=== PATIENT | female | born 1930 | race Two or more races ===

== ENCOUNTER 2017-03-01 20:31 | Emergency (ER) | payer OTHER ==
--- NOTE | ~2017-03-01 | CR72 ---
[facility] A Service of [facility] RADIOLOGY TEXT RESULTS PATIENT: AFRICA WONG LOCATION: [facility] : 34 UNIT #: [id number] AGE: [address]: Ant Nair MD SEX: F ORDER DR: [id number] [facility] [address] [place], [place] [address] [id number] E MR#: [id number] Acc #: [id number] NAME: AFRICA WONG : 1930 SEX: F STUDY DATE/TIME: 03/01/2017 22:00 UNIT: [facility] ROOM: STUDY DESCRIPTION: CR Chest Single View Portable Attending Physician: Ant Nair M.D. Ordering Physician: Ant Nair M.D. Primary Care Physician: No Primary Care Physician MEDICAL IMAGING REPORT This report is preliminary unless electronic signature is present EXAM Portable chest. HISTORY Weakness and dizzy and shortness of air for 2 days. FINDINGS The cardiac size and pulmonary vascularity are within normal limits allowing for shallow inspiration. Moderate right upper thoracic curve. Mild bibasilar linear atelectasis or scarring, greater in the right base. IMPRESSION 1. No acute findings. 2. Mild bibasilar fibrosis or linear atelectasis, greater in the right base. Dictated by... Crow Red M.D. THIS IS AN ELECTRONICALLY VERIFIED REPORT Crow Red M.D. at 03/02/2017 3:19 PM MARQUITA/katlyn TD: 03/01/2017 23:30 JOB #: [id number] MEDICAL IMAGING REPORT Page 1 of 1 COPY
--- NOTE | ~2017-03-01 | EKG ---
PATIENT: AFRICA WONG UNIT #: [id number] Ventricular Rate: 70 BPM Atrial Rate: 70 BPM P-R Interval: 136 ms QRS Duration: 74 ms Q-T Interval: 462 ms QTC Calculation(Bezet): 498 ms P [place]: 68 degrees Calculated R [place]: 21 degrees Calculated T [place]: 63 degrees Diagnosis Line: Normal sinus rhythm Diagnosis Line: Prolonged QT Diagnosis Line: Abnormal ECG Diagnosis Line: When compared with ECG of 01-MAR-2017 22:16, Diagnosis Line: (unconfirmed) Diagnosis Line: Previous ECG has undetermined rhythm, needs review Diagnosis Line: Confirmed by SAMI SHAH MD ([id number]) on 03/02/2017 Diagnosis Line: 7:40:41 PM INTERPRETING MD: PABLO BOWDEN
--- NOTE | ~2017-03-01 | CT71 ---
[facility] A Service of [facility] RADIOLOGY TEXT RESULTS PATIENT: AFRICA WONG LOCATION: [facility] : 32 UNIT #: [id number] AGE: [address]: Ant Nair MD SEX: F ORDER DR: [id number] [facility] [address] [place], [place] [address] [id number] E MR#: [id number] Acc #: [id number] NAME: AFRICA WONG : 1930 SEX: F STUDY DATE/TIME: 03/01/2017 22:57 UNIT: SAV ROOM: STUDY DESCRIPTION: CT Head Wo Contrast Attending Physician: Ant Nair M.D. Ordering Physician: Ant Nair M.D. Primary Care Physician: Primary Care Physician No MEDICAL IMAGING REPORT This report is preliminary unless electronic signature is present EXAM Noncontrast CT head DATE: 03/01/2017 HISTORY Weakness, dizziness and unable to stand for 2 days. Previous history of seizures and hypertension. COMPARISON None. TECHNIQUE This CT exam was performed with one or more of the following radiation dose reduction techniques: automatic exposure control, adjustment of mA and/or kV according to patient size, and iterative reconstruction. FINDINGS There is advanced generalized parenchymal atrophy. The ventricles appear generally enlarged, which may be the result of parenchymal volume loss, although underlying hydrocephalus could be considered. Extensive hypodensities in the deep white matter of the brain are nonspecific, but are favored to represent changes of chronic microvascular disease, somewhat greatest in the left frontal lobe, and there are chronic-appearing lacunar infarcts within the bilateral thalami and within the left caudate head. No definite acute or evolving infarct. No intracranial hemorrhage, mass lesion, mass effect or midline shift. Complete right frontal sinus opacification suggesting changes of chronic sinusitis with adjacent sinus wall thickening and sclerosis. Mastoid air cells are clear. No acute displaced calvarial fractures identified. IMPRESSION [facility] A Service of [facility] RADIOLOGY TEXT RESULTS PATIENT: AFRICA WONG LOCATION: [facility] : 34 UNIT #: [id number] AGE: [address]: Ant Nair MD SEX: F ORDER DR: 1. Extensive deep white matter hypodensities thought to represent changes of chronic microvascular disease with chronic-appearing lacunar infarct in the left caudate head and bilateral thalami. No definite acute infarct. If the patient's symptoms persist, or remain unexplained consider correlation MRI brain. 2. Moderately advanced generalized atrophy. 3. Generalized ventriculomegaly. This could be related to parenchymal atrophy, although hydrocephalus can also be considered in the appropriate clinical context. No comparison studies at this institution. 4. Chronic right frontal sinusitis. Dictated by... Lorri Rey M.D. THIS IS AN ELECTRONICALLY VERIFIED REPORT Lorri Rey M.D. at 03/02/2017 9:56 PM FAITH/yovana TD: 03/01/2017 23:55 JOB #: [id number] MEDICAL IMAGING REPORT Page 1 of 1 COPY
[2017-03-01 21:42] LABS: BASOPHIL% 0.6 % (0-2.5); EOSINOPHIL# 0.2 X10e3 (0-0.7); EOSINOPHIL% 3.9 % (0.0-7.0); HEMATOCRIT 37.6 % (35.0-45.0); HEMOGLOBIN 12.8 gm/dL (12.0-16.0); LYMPHOCYTE# 1.9 X10e3 (1.0-3.5); LYMPHOCYTE% 34.2 % (17.0-45.0); MEAN CORPUSCULAR HEMOGLOBIN 28.5 PG (28-34); MEAN PLATELET VOLUME 7.8 FL (6.5-11.5); MONOCYTE# 0.4 X10e3 (0-1.0); MONOCYTE% 7.9 % (3.0-12.0); NEUTROPHIL# 2.9 X10e3 (1.5-7.1); NEUTROPHIL% 53.4 % (40-75); PLATELET COUNT 201 X10e3 (140-420); RED BLOOD COUNT 4.48 X10e (3.90-5.30); RED CELL DISTRIBUTION WIDTH 13.5 % (11.0-15.5); WHITE BLOOD COUNT 5.5 X10e3 (4.0-10.5)
[2017-03-01 21:43] LABS: DIFF IND NO
[2017-03-01 21:55] LABS: POC - CKMB 1.5 ng/mL (0.0-7.9); POC - TROPONIN <0.05 ng/mL (<=0.05)
[2017-03-01 22:10] LABS: ALBUMIN SERUM 3.7 g/dL (3.5-5.0); BILIRUBIN, DIRECT 0.1 mg/dL (0.0-0.2); BILIRUBIN,INDIRECT 0.6 mg/dL (0.0-0.9); BILIRUBIN,TOTAL 0.7 mg/dL (0.2-2.0); GLOM FILT RATE Estimated 51.7 mL/min (>60); POTASSIUM 4.4 mmol/L (3.5-5.1); PROTEIN TOTAL SERUM 7.2 g/dL (6.0-8.3)
[2017-03-01 22:20] LABS: URINE SOURCE CLEAN CATCH
[2017-03-01 22:25] LABS: URINE APPEARANCE CLEAR; URINE BILIRUBIN NEG (NEG); URINE BLOOD NEG (NEG); URINE COLOR YELLOW; URINE GLUCOSE NEG (NEG); URINE KETONE NEG (NEG); URINE LEUKOCYTE ESTERASE NEG (NEG); URINE NITRATE NEG (NEG); URINE PROTEIN NEG (NEG); URINE SPECIFIC GRAVITY 1.012 (1.003-1.035); URINE UROBILINOGEN 0.2 MG/DL (NEG)
[2017-03-01 22:29] LABS: CULTURE INDICATED? NO
== END 2017-03-02 01:40 | disposition home or self-care (01) ==
LOC: CED 20:31
PROVIDERS: Emergency Medicine
DX: R53.1 Weakness (principal); R53.83 Other fatigue; I10 Essential (primary) hypertension
CPT/HCPCS: 36415; 70450; 71010; 80048; 80076; 81003; 82553; 82947; 84484; 85025; 93005; 96360; 99285